=== PATIENT | female | born 1945 | race Caucasian/White ===

== ENCOUNTER → 2016-09-07 | Outpatient (CLI) | payer MEDICARE, OTHER ==
[~2016-09-07] MED LIST: ACET-2264 PO; CALC600T12 PO; NEBI20TA2 PO; RANI300T6 PO; SIMV40TA PO
--- NOTE | 2016-09-07 10:50 | Diagnostic Imaging Report ---
INDICATION: Nausea and abdominal pain. TECHNIQUE: A CT of the abdomen and pelvis was obtained with IV contrast bolus. COMPARISON: There is no previous study for comparison. FINDINGS: The visualized portions of the lung bases demonstrate some mild dependent atelectatic changes. There is no pleural fluid or free air. There is a moderate-sized hiatal hernia. The liver shows no focal lesions. The spleen, adrenals, and pancreas are normal. The kidneys bilaterally are unremarkable except for a small cyst in the left kidney posteriorly. There is no retroperitoneal mass or adenopathy. There is atherosclerotic change of the aorta without evidence of aneurysm. There is no ascites. There is a mixed density lesion in the uterus to the right of the midline measuring about 5 cm. The visualized bowel loops appear unremarkable. IMPRESSION: There is a mixed density 5 cm lesion in the right side of the uterus which needs to be further characterized and followed sonographically. There is no abdominal mass or abnormal fluid collection otherwise seen. There is a moderate-sized hiatal hernia. There is a benign-appearing cyst in the left kidney. Dictated by: Dictated on workstation # [id number]
== END ==
LOC: RAD 09:23
PROVIDERS: ATTEND Family Medicine
DX: R11.0 Nausea (principal); R10.84 Generalized abdominal pain; K44.9 Diaphragmatic hernia without obstruction or gangrene
CPT/HCPCS: 74178; Q9967

== ENCOUNTER → 2016-09-08 | Outpatient (CLI) | payer MEDICARE, OTHER | LOC: RAD 09:19 | PROVIDERS: ATTEND Family Medicine | DX: Z53.9 Procedure and treatment not carried out, unspecified reason (principal) ==

== ENCOUNTER → 2016-09-15 | Outpatient (CLI) | payer MEDICARE, OTHER ==
--- NOTE | 2016-09-15 12:04 | Diagnostic Imaging Report ---
INDICATION: Uterine mass. COMPARISON: 09/07/2016. TECHNIQUE: Transvaginal ultrasound images were obtained. FINDINGS: There is a solid mass involving the uterus and endometrium. The measured endometrium is 9 mm. Uterine size is 9 x 5 x 6 cm. The ovaries are nonvisualized due to chronic atrophy. There is no free fluid. IMPRESSION: 1. Solid uterine mass measuring approximately 5 x 4 cm probably a benign fibroid. However if there is postmenopausal bleeding, endometrial neoplasm is not excluded. 2. No free fluid or adnexal mass. Dictated by: Dictated on workstation # [id number]
== END ==
LOC: RAD 09:28
PROVIDERS: ATTEND Family Medicine
DX: N85.8 Other specified noninflammatory disorders of uterus (principal)
CPT/HCPCS: 76830; 76856